=== PATIENT | female | born 1970 | race Caucasian/White ===

== ENCOUNTER 2018-10-15 13:24 | Inpatient (IN) | payer MEDICAID, OTHER ==
[2018-10-15 17:26] LABS: ADD MAN DIFF? NO
[2018-10-15 17:33] LABS: WHITE BLOOD COUNT 10.5 10^3/ul (4.8-10.8)
[2018-10-15 17:33] LABS: ABNORMAL IP MESSAGE 1; BASOPHIL # 0.1 10^3/ul (0.0-0.1); EOSINOPHILS # 0.1 10^3/ul (0.0-0.5); EOSINOPHILS % 0.8 % (0.0-7.0); HEMATOCRIT 29.4 % (37.0-47.0); LYMPHOCYTES % 9.4 % (15.0-51.0); MEAN CORPUSCULAR HEMOGLOBIN 24.1 pg (29.0-33.0); MEAN CORPUSCULAR HGB CONC 30.6 g/dl (32.0-37.0); MEAN CORPUSCULAR VOLUME 78.8 fl (82.0-101.0); MONOCYTE # 0.9 10^3/ul (0.3-0.9); MONOCYTES % 8.8 % (0.0-11.0); NEUTROPHIL # 8.3 10^3/ul (1.6-7.5); NEUTROPHILS % 78.8 % (39.0-77.0); PLATELET COUNT 215 10^3/UL (140-415); RED BLOOD COUNT 3.73 10^6/ul (4.20-5.40); RED CELL DISTRIBUTION WIDTH 31.4 % (11.5-14.5)
[2018-10-15 17:34] LABS: POSITIVE DIFF @See below
[2018-10-15 17:53] LABS: INR 1.59; PROTIME 19.3 Sec (11.9-14.9); PT RATIO 1.5
[2018-10-15 17:54] LABS: PARTIAL THROMBOPLASTIN TIME 49.3 Sec (23.0-35.0)
[2018-10-15 17:57] LABS: URINE PH (Dip) POC 6.5 (5.0-8.5)
[2018-10-15 17:57] LABS: URINE BLOOD (Dip) POC Negative (NEGATIVE); URINE KETONES (Dip) POC Trace (NEGATIVE); URINE LEUKOCYTE EST (Dip) POC 1+ (NEGATIVE); URINE NITRITE (Dip) POC Positive (NEGATIVE); URINE TOTAL PROTEIN POC 1+ (NEGATIVE)
[2018-10-15 18:00] LABS: AMMONIA 41 umol/l (9-30)
[2018-10-15 18:05] LABS: ETHANOL < 10.0 mg/dl (0-0)
[2018-10-15 18:14] LABS: ALANINE AMINOTRANSFERASE 33 IU/L (13-69); ALBUMIN 2.7 g/dl (3.3-4.9); ALBUMIN/GLOBULIN RATIO 0.52; ALKALINE PHOSPHATASE 315 IU/L (42-121); ANION GAP 11 (5-13); ASPARTATE AMINO TRANSFERASE 161 IU/L (15-46); BILIRUBIN,INDIRECT 2.4 mg/dl (0-1.1); BILIRUBIN,TOTAL 11.9 mg/dl (0.2-1.3); BLOOD UREA NITROGEN 6 mg/dl (7-20); CALCIUM 7.7 mg/dl (8.4-10.2); CARBON DIOXIDE 20 mmol/L (21-31); CHLORIDE 104 mmol/L (97-110); CREATININE 0.54 mg/dl (0.44-1.00); Estimated GFR > 60 mL/min (>60); GLUCOSE 132 mg/dl (70-220); LIPASE 112 U/L (23-300); POTASSIUM 3.5 mmol/L (3.5-5.1); SODIUM 135 mmol/L (135-144); TOTAL PROTEIN 7.8 g/dl (6.1-8.1)
[2018-10-15] MEDS: CEFTRIAXONE 1 GM/50 ML (PMX) 50 ML IVPB (19:25)
[2018-10-15 20:00] LABS: HAAIG REFLEX REFLEX FILED
[2018-10-15] MEDS ORDERED: NACL 0.9% 3 ML SYG IV (20:00)
[2018-10-15] MEDS ORDERED: DOCUSATE SODIUM 100 MG CAP PO (20:00)
[2018-10-15] MEDS ORDERED: ACETAMINOPHEN 325 MG TAB PO (20:00)
[2018-10-15] MEDS ORDERED: BISACODYL (EC) 5 MG TAB PO (20:00)
[2018-10-15] MEDS ORDERED: ONDANSETRON 4 MG INJ IV (20:00)
[2018-10-15 20:07] LABS: RETICULOCYTE COUNT # 0.133 X10^6 (0.020-0.110); RETICULOCYTE COUNT % 3.6 % (0.5-1.5)
[2018-10-15 20:07] LABS: RETICULOCYTE RBC 3.73
[2018-10-15 20:08] LABS: LACTATE DEHYDROGENASE 787 IU/L (313-618)
[2018-10-15 20:14] LABS: ADD UMIC YES; UR ASCORBIC ACID 20 mg/dL (NEGATIVE); UR BACTERIA MANY /HPF (NONE SEEN); UR BILIRUBIN (Dip) 2+ mg/dL (NEGATIVE); UR BLOOD (Dip) NEGATIVE (NEGATIVE); UR CLARITY SLIGHTLY CLOUDY (CLEAR); UR COLOR AMBER (YELLOW); UR GLUCOSE (Dip) NEGATIVE (NEGATIVE); UR KETONES (Dip) NEGATIVE (NEGATIVE); UR LEUKOCYTE ESTERASE (Dip) 1+ Leu/ul (NEGATIVE); UR MUCUS FEW /HPF (NONE SEEN); UR NITRITE (Dip) POSITIVE (NEGATIVE); UR RBC 1 /HPF (0-5); UR SPECIFIC GRAVITY (Dip) 1.015 (1.003-1.030); UR SQUAMOUS EPITHELIAL CELL MODERATE /HPF (FEW); UR TOTAL PROTEIN (Dip) NEGATIVE (NEGATIVE); UR UROBILINOGEN (Dip) 2+ mg/dL (NEGATIVE); UR WBC 44 /HPF (0-5)
[2018-10-15 20:34] LABS: AMPHETAMINE/METHAMPHETAMINE Negative (NEGATIVE); BARBITURATES Negative (NEGATIVE); BENZODIAZEPINES Negative (NEGATIVE); CANNABINOIDS Negative (NEGATIVE); COCAINE Negative (NEGATIVE); OPIATES Negative (NEGATIVE)
[2018-10-15 20:48] LABS: HEPATITIS B SURFACE ANTIGEN NEGATIVE (NEGATIVE)
[2018-10-15 21:05] LABS: HEPATITIS B CORE ANTIBODY NEGATIVE (NEGATIVE); HEPATITIS C VIRAL ANTIBODY NEGATIVE (NEGATIVE)
[2018-10-15 21:13] LABS: HEPATITIS B SURFACE ANTIBODY NEGATIVE (NEGATIVE)
[2018-10-15] MEDS: morphine 2 MG INJ IV (23:49)
[2018-10-16] MEDS: morphine 2 MG INJ IV ×4 (04:14→23:43)
[2018-10-16] MEDS: predniSOLONE (3 MG/ML PO SYG) PO (06:26)
[2018-10-16] MEDS: PANTOPRAZOLE (EC) 40 MG TAB PO (06:26)
[2018-10-16 06:52] LABS: ADD MAN DIFF? NO
[2018-10-16 06:58] LABS: WHITE BLOOD COUNT 9.6 10^3/ul (4.8-10.8)
[2018-10-16 06:58] LABS: ABNORMAL IP MESSAGE 1; BASOPHIL # 0.1 10^3/ul (0.0-0.1); BASOPHILS % 0.8 % (0.0-2.0); EOSINOPHILS # 0.1 10^3/ul (0.0-0.5); EOSINOPHILS % 1.3 % (0.0-7.0); HEMATOCRIT 24.7 % (37.0-47.0); HEMOGLOBIN 7.7 g/dl (12.0-16.0); LYMPHOCYTES % 10.6 % (15.0-51.0); MEAN CORPUSCULAR HEMOGLOBIN 24.1 pg (29.0-33.0); MEAN CORPUSCULAR HGB CONC 31.2 g/dl (32.0-37.0); MEAN CORPUSCULAR VOLUME 77.2 fl (82.0-101.0); MONOCYTES % 10.8 % (0.0-11.0); NEUTROPHIL # 7.3 10^3/ul (1.6-7.5); NEUTROPHILS % 75.8 % (39.0-77.0); PLATELET COUNT 214 10^3/UL (140-415); RED CELL DISTRIBUTION WIDTH 30.9 % (11.5-14.5)
[2018-10-16 07:03] LABS: POSITIVE DIFF @See below
[2018-10-16 07:23] LABS: IRON 23 ug/dl (35-150)
[2018-10-16 07:33] LABS: % IRON SATURATION 9 % SAT (22-52); TOTAL IRON BINDING CAPACITY 265 ug/dl (241-421)
[2018-10-16 08:00] LABS: ALPHA FETOPROTEIN 2.44 IU/L (0.00-7.21)
[2018-10-16 08:17] LABS: FERRITIN 18.7 ng/ml (6.2-137.0)
[2018-10-16 08:34] LABS: ALANINE AMINOTRANSFERASE 31 IU/L (13-69); ALBUMIN 2.3 g/dl (3.3-4.9); ALBUMIN/GLOBULIN RATIO 0.56; ALKALINE PHOSPHATASE 244 IU/L (42-121); ANION GAP 9 (5-13); ASPARTATE AMINO TRANSFERASE 125 IU/L (15-46); BILIRUBIN,INDIRECT 2.3 mg/dl (0-1.1); BLOOD UREA NITROGEN 5 mg/dl (7-20); CALCIUM 7.8 mg/dl (8.4-10.2); CARBON DIOXIDE 21 mmol/L (21-31); CHLORIDE 104 mmol/L (97-110); CHOL/HDL RATIO 10.5 RATIO; CHOLESTEROL 126 mg/dl (100-200); Estimated GFR > 60 mL/min (>60); GLUCOSE 87 mg/dl (70-220); HDL CHOLESTEROL 12 mg/dl (34-88); LDL CHOLESTEROL,CALCULATED 57 mg/dl; MAGNESIUM 1.8 mg/dl (1.7-2.5); POTASSIUM 3.7 mmol/L (3.5-5.1); SODIUM 134 mmol/L (135-144); TOTAL PROTEIN 6.4 g/dl (6.1-8.1); TRIGLYCERIDES 283 mg/dl (0-149)
[2018-10-16 08:50] LABS: FREE THYROXINE INDEX (Calc) 5.67 ug/ml (0.65-3.89); T3 UPTAKE 50.6 % (23.5-40.5); T4 (THYROXINE) 11.2 ug/dl (5.5-11.0)
[2018-10-16] MEDS: INFLUENZA VIRUS VACCINE 0.5 ML (DISPENSING) IM* (09:22)
[2018-10-16] MEDS ORDERED: CEFTRIAXONE 1 GM/50 ML (PMX) 50 ML IVPB (19:00)
[2018-10-17] MEDS: PANTOPRAZOLE (EC) 40 MG TAB PO (05:56)
[2018-10-17 09:50] LABS: ADD MAN DIFF? NO
[2018-10-17 09:53] LABS: WHITE BLOOD COUNT 12.1 10^3/ul (4.8-10.8)
[2018-10-17 09:53] LABS: ABNORMAL IP MESSAGE 1; BASOPHIL # 0.1 10^3/ul (0.0-0.1); BASOPHILS % 0.6 % (0.0-2.0); EOSINOPHILS # 0.1 10^3/ul (0.0-0.5); EOSINOPHILS % 1.2 % (0.0-7.0); HEMATOCRIT 29.1 % (37.0-47.0); HEMOGLOBIN 8.8 g/dl (12.0-16.0); LYMPHOCYTES # 1.1 10^3/ul (0.8-2.9); LYMPHOCYTES % 9.3 % (15.0-51.0); MEAN CORPUSCULAR HEMOGLOBIN 24.3 pg (29.0-33.0); MEAN CORPUSCULAR HGB CONC 30.2 g/dl (32.0-37.0); MEAN CORPUSCULAR VOLUME 80.4 fl (82.0-101.0); MONOCYTES % 8.5 % (0.0-11.0); NEUTROPHIL # 9.6 10^3/ul (1.6-7.5); NEUTROPHILS % 79.1 % (39.0-77.0); PLATELET COUNT 283 10^3/UL (140-415); RED BLOOD COUNT 3.62 10^6/ul (4.20-5.40)
[2018-10-17 09:57] LABS: POSITIVE DIFF @See below
[2018-10-17 10:23] LABS: ALANINE AMINOTRANSFERASE 37 IU/L (13-69); ALBUMIN 2.5 g/dl (3.3-4.9); ALBUMIN/GLOBULIN RATIO 0.56; ALKALINE PHOSPHATASE 218 IU/L (42-121); ANION GAP 8 (5-13); ASPARTATE AMINO TRANSFERASE 141 IU/L (15-46); BILIRUBIN,INDIRECT 2.1 mg/dl (0-1.1); BILIRUBIN,TOTAL 8.9 mg/dl (0.2-1.3); BLOOD UREA NITROGEN 6 mg/dl (7-20); CALCIUM 7.9 mg/dl (8.4-10.2); CARBON DIOXIDE 22 mmol/L (21-31); CHLORIDE 106 mmol/L (97-110); CREATININE 0.68 mg/dl (0.44-1.00); Estimated GFR > 60 mL/min (>60); GLUCOSE 95 mg/dl (70-220); PHOSPHORUS 2.3 mg/dl (2.5-4.9); SODIUM 136 mmol/L (135-144); TOTAL PROTEIN 6.9 g/dl (6.1-8.1)
[2018-10-17 11:01] LABS: SMOOTH MUSCLE AB SCREEN NEGATIVE (NEGATIVE)
[2018-10-17] MEDS: morphine 2 MG INJ IV (13:40)
[2018-10-17] MEDS: NITROFURANTOIN (SR) 100 MG CAP PO (16:23)
[2018-10-17 17:57] LABS: HAPTOGLOBIN 114 mg/dL (43-212)
[2018-10-18 12:57] LABS: MITOCHONDRIAL TB NEGATIVE (NEGATIVE); SMOOTH MUSCLE AB SCREEN NEGATIVE (NEGATIVE)
[2018-10-18 13:42] LABS: ANA SCREEN NEGATIVE (NEGATIVE)
[2018-10-18 18:18] LABS: ALPHA 1 ANTITRYPSIN 237 mg/dL (83-199)
[2018-10-22 00:09] LABS: URINE BLOOD (Dip) POC Negative (NEGATIVE); URINE KETONES (Dip) POC Trace (NEGATIVE); URINE LEUKOCYTE EST (Dip) POC 1+ (NEGATIVE); URINE NITRITE (Dip) POC Positive (NEGATIVE); URINE TOTAL PROTEIN POC 1+ (NEGATIVE)
[2018-10-22 00:09] LABS: URINE PH (Dip) POC 6.5 (5.0-8.5)
== END 2018-10-17 16:40 | disposition home or self-care (01) | DRG 433 ==
LOC: E/R 13:24 → PP2 18:50
DX: K70.31 Alcoholic cirrhosis of liver with ascites (principal); N39.0 Urinary tract infection, site not specified; D68.4 Acquired coagulation factor deficiency; K70.11 Alcoholic hepatitis with ascites; D64.9 Anemia, unspecified; F10.20 Alcohol dependence, uncomplicated; Y90.0 Blood alcohol level of less than 20 mg/100 ml; B96.20 Unspecified Escherichia coli [E. coli] as the cause of diseases classified elsewhere
CPT/HCPCS: 36415; 74181; 76705; 80053; 80061; 80307; 81001; 81003; 81025; 82103; 82105; 82140; 82728; 83010; 83036; 83540; 83615; 83690; 83735; 84100; 84436; 84443; 84479; 85025; 85045; 85610; 85730; 86038; 86255; 86376; 86704; 86706; 86708; 86709; 86803; 87086; 87340; 90686; 99285-25